=== PATIENT | female | born 1990 | race Caucasian/White ===

== ENCOUNTER → 2017-02-11 | Outpatient (CLI) | payer OTHER | LOC: CT 02-08 08:00 | DX: R10.31 Right lower quadrant pain (principal); R10.813 Right lower quadrant abdominal tenderness; R11.0 Nausea; N83.9 Noninflammatory disorder of ovary, fallopian tube and broad ligament, unspecified ==

== ENCOUNTER 2021-04-05 19:53 | Emergency (ER) | payer OTHER ==
[2021-04-05 21:26] LABS: HEMOGLOBIN 13.6 gm/dl (12.3-15.3); RED BLOOD COUNT 4.3 M/UL (4.00-5.10); WHITE BLOOD COUNT 11.6 K/UL (4.5-11.0)
[2021-04-05 21:46] LABS: BUN/CREATININE RATIO 12 (0-10)
== END 2021-04-05 23:23 | disposition home or self-care (01) ==
LOC: ER1 19:53
PROVIDERS: Physician Assistant
DX: N93.8 Other specified abnormal uterine and vaginal bleeding (principal); R51.9 Headache, unspecified; Z90.49 Acquired absence of other specified parts of digestive tract; Z88.5 Allergy status to narcotic agent
CPT/HCPCS: 80053; 84703; 85025; 99284